=== PATIENT | male | born 1965 ===

== ENCOUNTER 2017-05-23 22:03 | Emergency (ER) | payer MEDICAID ==
[2017-05-23 22:09] VITALS: BP 165/92; PULSE 89; RESP 20; TEMP 97.9; O2SAT 100
--- NOTE | 2017-05-23 23:37 | C.PDOC ---
History Of Present Illness 51 year old male with Hx of eczema presents to the ED c/o left hand being swollen. Patient states he was at [facility] for kidney stones when a nurse tried to place an IV on his left hand unsuccessfully, after he was D/C from [facility] he noticed the area on his left hand is swollen and painful to touch. Denies fever , trauma, numbness, or weakness. Time Seen by Provider: 05/23/17 22:27 Chief Complaint (Nursing): Finger,Hand,&Wrist History Per: Patient History/Exam Limitations: no limitations Onset/Duration Of Symptoms: Days Current Symptoms Are (Timing): Still Present Quality: Burning, "Pain" Exacerbating Factor(s): Nothing Recent travel outside of the [place]: No Additional History Per: Patient Past Medical History Reviewed: Historical Data, Nursing Documentation, Vital Signs Vital Signs: Last Vital Signs Temp 97.9 F 05/23/17 22:06 Pulse 89 05/23/17 22:06 Resp 20 05/23/17 22:06 BP 165/92 H 05/23/17 22:06 Pulse Ox 100 05/24/17 01:53 - Medical History PMH: No Chronic Diseases Surgical History: Appendectomy Family History: States: Unknown Family Hx - Social History Hx Alcohol Use: Yes Hx Substance Use: No - Immunization History Hx Tetanus Toxoid Vaccination: No Hx Influenza Vaccination: Yes Hx Pneumococcal Vaccination: No Review Of Systems Except As Marked, All Systems Reviewed And Found Negative. Constitutional: Negative for: Fever, Chills Cardiovascular: Negative for: Chest Pain, Palpitations Respiratory: Negative for: Cough, Shortness of Breath Gastrointestinal: Negative for: Nausea, Vomiting, Abdominal Pain Neurological: Negative for: Weakness, Numbness Physical Exam - Physical Exam Appears: Non-toxic, No Acute Distress Skin: Normal Color, Warm, Dry Head: Atraumatic, Normacephalic Eye(s): bilateral: Normal Inspection Oral Mucosa: Moist Neck: Normal ROM, Supple Chest: Symmetrical Cardiovascular: Rhythm Regular, No Murmur Respiratory: Normal Breath Sounds, No Accessory Muscle Use, No Rales, No Rhonchi , No Wheezing Gastrointestinal/Abdominal: Soft, No Tenderness Extremity: Normal ROM, Capillary Refill (< 2 sec), Swelling (Right 2nd and 3rd metacarpal joint with erythema and tenderness) Pulses: Left Radial: Normal, Right Radial: Normal Neurological/Psych: Oriented x3, Normal Speech, Normal Cognition, Normal Motor, Normal Sensation Gait: Steady ED Course And Treatment O2 Sat by Pulse Oximetry: 100 (On RA) Pulse Ox Interpretation: Normal Medical Decision Making Medical Decision Making: Plan: * Cleocin 300 mg PO given Disposition - Disposition Referrals: [facility] [Outside] Disposition: HOME/ ROUTINE Disposition Time: 23:35 Condition: GOOD Additional Instructions: Follow up with the medical doctor within 1-2 days. return if worsened. Prescriptions: Clindamycin [Cleocin] 300 mg PO TID #30 cap Instructions: Cellulitis (ED) Forms: [place] ([place]) - Clinical Impression Clinical Impression: Cellulitis - PA / [employer] / Resident Statement MD/DO has reviewed & agrees with the documentation as recorded. - Scribe Statement The provider has reviewed the documentation as recorded by the Scribe Gray Son All medical record entries made by the Scribe were at my direction and personally dictated by me. I have reviewed the chart and agree that the record accurately reflects my personal performance of the history, physical exam, medical decision making, and the department course for this patient. I have also personally directed, reviewed, and agree with the discharge instructions and disposition.
== END 2017-05-24 01:00 | disposition home or self-care (01) ==
LOC: C.ER 22:03
DX: L03.114 Cellulitis of left upper limb (principal)